=== PATIENT | female | born 1985 | race Caucasian/White ===

== ENCOUNTER 2018-03-03 10:00 | Emergency (ER) | payer MEDICAID ==
[~2018-03-03] VITALS: Ht 170.2 cm; Wt 49.9 kg
[2018-03-03 10:04] VITALS: Ht 170.2 cm; Wt 49.9 kg
[2018-03-03 11:52] LABS: BASOPHIL % 0.3 % (0-2); PLATELET COUNT 201 x10^3mcL (130-400); RED CELL DISTRIBUTION WIDTH 13.1 % (11.5-14.5)
[2018-03-03 12:08] LABS: CALCIUM 8.8 mg/dL (8.5-10.1); CHLORIDE SERUM 109 mmol/L (98-107); CREATININE SERUM 0.9 mg/dL (0.6-1.0); GFR1 > 60 mL/min; GLUCOSE SERUM 85 mg/dL (74-106); SODIUM SERUM 144 mmol/L (136-145)
[2018-03-03 12:13] LABS: ALKALINE PHOSPHATASE 69 U/L (46-116); ALT/SGPT 13 U/L (14-59); AST/SGOT 26 U/L (15-37); BILIRUBIN TOTAL 0.32 mg/dL (0.20-1.00); TOTAL PROTEIN, SERUM 7.6 g/dL (6.4-8.2)
[2018-03-03 12:26] LABS: FREE THYROXINE INDEX 2.8 ug/dL (1.4-4.5); T4(THYROXINE) 8.6 ug/dL (4.7-13.3)
[2018-03-03 12:28] LABS: T3 TOTAL 1.05 ng/mL
[2018-03-03 13:49] LABS: AMPHETAMINE QUAL UR NONE DETECTED (See below)
[2018-03-03 17:58] VITALS: BP 116/71
== END 2018-03-03 18:04 | disposition home or self-care (01) ==
LOC: ED 10:00
PROVIDERS: Emergency Medicine
DX: S50.12XA Contusion of left forearm, initial encounter (principal); F32.9 Major depressive disorder, single episode, unspecified; G89.29 Other chronic pain; M54.9 Dorsalgia, unspecified; N39.0 Urinary tract infection, site not specified; Y93.39 Activity, other involving climbing, rappelling and jumping off; Y92.89 Other specified places as the place of occurrence of the external cause; Y99.8 Other external cause status
CPT/HCPCS: 36415; 84439; G0480

== ENCOUNTER 2018-05-12 21:51 | Emergency (ER) | payer SELFPAY ==
[~2018-05-12] VITALS: Ht 170.2 cm; Wt 49.9 kg
[2018-05-12 22:04] VITALS: Ht 170.2 cm; Wt 49.9 kg
[2018-05-12 22:58] VITALS: BP 106/59
== END 2018-05-12 22:58 | disposition home or self-care (01) ==
LOC: ED 21:51
DX: S69.82XA Other specified injuries of left wrist, hand and finger(s), initial encounter (principal); M79.7 Fibromyalgia; F41.9 Anxiety disorder, unspecified; F17.210 Nicotine dependence, cigarettes, uncomplicated; Z88.1 Allergy status to other antibiotic agents; S69.81XA Other specified injuries of right wrist, hand and finger(s), initial encounter; W86.8XXA Exposure to other electric current, initial encounter; Y93.89 Activity, other specified; Y92.89 Other specified places as the place of occurrence of the external cause; Y99.8 Other external cause status

== ENCOUNTER 2018-06-02 19:30 | Emergency (ER) | payer SELFPAY ==
[~2018-06-02] VITALS: Ht 170.2 cm; Wt 45.4 kg
[2018-06-02 19:55] VITALS: Ht 170.2 cm; Wt 45.4 kg
[2018-06-02 22:46] VITALS: BP 97/64
== END 2018-06-02 22:46 | disposition home or self-care (01) ==
LOC: ED 19:30
DX: J20.9 Acute bronchitis, unspecified (principal); F41.9 Anxiety disorder, unspecified; M79.7 Fibromyalgia; Z88.1 Allergy status to other antibiotic agents
CPT/HCPCS: J1885; J7613

== ENCOUNTER 2018-07-13 21:46 | Emergency (ER) | payer SELFPAY ==
[2018-07-13 21:53] VITALS: Ht 170.2 cm
[2018-07-14 00:10] LABS: BASOPHIL % 0.1 % (0-2); PLATELET COUNT 207 x10^3mcL (130-400); RED CELL DISTRIBUTION WIDTH 13.3 % (11.5-14.5)
[2018-07-14 00:13] LABS: CALCIUM 9.5 mg/dL (8.5-10.1); CARBON DIOXIDE 28.6 mmol/L (21-32); CHLORIDE SERUM 106 mmol/L (98-107); CREATININE SERUM 0.8 mg/dL (0.6-1.0); GFR1 > 60 mL/min; GLUCOSE SERUM 86 mg/dL (74-106); POTASSIUM SERUM 3.6 mmol/L (3.5-5.1); SODIUM SERUM 144 mmol/L (136-145)
[2018-07-14 00:16] LABS: UA SPECIFIC GRAVITY 1.015 (1.005-1.035); microscopic required? YES; urine erythrocyte TRACE (NEGATIVE)
[2018-07-14 00:17] LABS: ALKALINE PHOSPHATASE 80 U/L (46-116); ALT/SGPT 44 U/L (14-59); AMYLASE 58 U/L (25-115); AST/SGOT 53 U/L (15-37); BILIRUBIN TOTAL 0.36 mg/dL (0.20-1.00); CHOLESTEROL 137 mg/dL (<200); LIPASE 106 IU/L (73-393); TOTAL PROTEIN, SERUM 7.5 g/dL (6.4-8.2)
[2018-07-14 00:18] LABS: HDL CHOLESTEROL 63 mg/dL (40-60)
[2018-07-14 01:04] LABS: AMPHETAMINE QUAL UR NONE DETECTED (See below)
[2018-07-14 01:23] VITALS: BP 105/63
== END 2018-07-14 01:23 | disposition home or self-care (01) ==
LOC: ED 21:46
PROVIDERS: Emergency Medicine
DX: R07.89 Other chest pain (principal); M79.7 Fibromyalgia; R64 Cachexia; F12.980 Cannabis use, unspecified with anxiety disorder; F17.210 Nicotine dependence, cigarettes, uncomplicated; Z98.51 Tubal ligation status
CPT/HCPCS: 36415; 83880; 99406; J1100; J1885

== ENCOUNTER 2018-07-23 11:46 | Emergency (ER) | payer SELFPAY ==
[~2018-07-23] VITALS: Ht 200.7 cm; Wt 49.9 kg
[2018-07-23 11:53] VITALS: Ht 200.7 cm; Wt 49.9 kg
[2018-07-23 12:37] LABS: PLATELET COUNT 206 x10^3mcL (130-400); RED CELL DISTRIBUTION WIDTH 13.3 % (11.5-14.5)
[2018-07-23 12:38] LABS: BASOPHIL % 0.1 % (0-2)
[2018-07-23 12:53] LABS: CARBON DIOXIDE 27.7 mmol/L (21-32); CHLORIDE SERUM 106 mmol/L (98-107); CREATININE SERUM 0.9 mg/dL (0.6-1.0); GFR1 > 60 mL/min; GLUCOSE SERUM 224 mg/dL (74-106); POTASSIUM SERUM 3.1 mmol/L (3.5-5.1); SODIUM SERUM 143 mmol/L (136-145)
[2018-07-23 12:58] LABS: ALBUMIN 3.6 g/dL (3.4-5.0); ALKALINE PHOSPHATASE 80 U/L (46-116); ALT/SGPT 14 U/L (14-59); AST/SGOT 23 U/L (15-37); BILIRUBIN TOTAL 0.38 mg/dL (0.20-1.00); TOTAL PROTEIN, SERUM 6.9 g/dL (6.4-8.2)
[2018-07-23 14:51] LABS: AMPHETAMINE QUAL UR NONE DETECTED (See below)
[2018-07-23 19:10] VITALS: BP 118/72
== END 2018-07-23 19:10 | disposition home or self-care (01) ==
LOC: ED 11:46
PROVIDERS: Emergency Medicine
DX: R45.4 Irritability and anger (principal); E87.6 Hypokalemia; M79.7 Fibromyalgia; F41.9 Anxiety disorder, unspecified; Z88.1 Allergy status to other antibiotic agents
CPT/HCPCS: 36415; G0480

== ENCOUNTER 2018-08-03 01:33 | Emergency (ER) | payer SELFPAY ==
[~2018-08-03] VITALS: Ht 170.2 cm; Wt 45.4 kg
[2018-08-03 01:45] VITALS: Ht 170.2 cm; Wt 45.4 kg
[2018-08-03 02:32] LABS: BASOPHIL % 0.5 % (0-2); PLATELET COUNT 221 x10^3mcL (130-400); RED CELL DISTRIBUTION WIDTH 12.5 % (11.5-14.5)
[2018-08-03 02:40] LABS: CALCIUM 9.1 mg/dL (8.5-10.1); CARBON DIOXIDE 30.2 mmol/L (21-32); CHLORIDE SERUM 103 mmol/L (98-107); CREATININE SERUM 1.1 mg/dL (0.6-1.0); GFR1 > 60 mL/min; GLUCOSE SERUM 95 mg/dL (74-106); POTASSIUM SERUM 3.9 mmol/L (3.5-5.1); SODIUM SERUM 143 mmol/L (136-145)
[2018-08-03 02:45] LABS: ALBUMIN 3.7 g/dL (3.4-5.0); ALKALINE PHOSPHATASE 108 U/L (46-116); ALT/SGPT 40 U/L (14-59); AST/SGOT 45 U/L (15-37); BILIRUBIN TOTAL 0.27 mg/dL (0.20-1.00); TOTAL PROTEIN, SERUM 7.2 g/dL (6.4-8.2)
[2018-08-03 02:49] LABS: FREE T4 1.18 ng/dL (0.76-1.46)
[2018-08-03 06:12] VITALS: BP 118/77
[2018-08-03 07:27] LABS: AMPHETAMINE QUAL UR NONE DETECTED (See below)
== END 2018-08-03 06:12 | disposition home or self-care (01) ==
LOC: ED 01:33
PROVIDERS: Emergency Medicine
DX: F41.9 Anxiety disorder, unspecified (principal); F29 Unspecified psychosis not due to a substance or known physiological condition; M79.7 Fibromyalgia; Z98.890 Other specified postprocedural states
CPT/HCPCS: 36415; 84439; G0480

== ENCOUNTER 2018-08-07 15:36 | Emergency (ER) | payer SELFPAY ==
[~2018-08-07] VITALS: Ht 170.2 cm; Wt 45.4 kg
[2018-08-07 15:48] VITALS: Ht 170.2 cm; Wt 45.4 kg
[2018-08-07 16:26] LABS: BASOPHIL % 0.9 % (0-2); PLATELET COUNT 200 x10^3mcL (130-400); RED CELL DISTRIBUTION WIDTH 13.5 % (11.5-14.5)
[2018-08-07 16:39] LABS: CALCIUM 9.7 mg/dL (8.5-10.1); CARBON DIOXIDE 29.1 mmol/L (21-32); CHLORIDE SERUM 106 mmol/L (98-107); CREATININE SERUM 0.8 mg/dL (0.6-1.0); GFR1 > 60 mL/min; GLUCOSE SERUM 83 mg/dL (74-106); POTASSIUM SERUM 4.3 mmol/L (3.5-5.1); SODIUM SERUM 143 mmol/L (136-145)
[2018-08-07 16:51] LABS: ALBUMIN 3.7 g/dL (3.4-5.0); ALKALINE PHOSPHATASE 90 U/L (46-116); ALT/SGPT 36 U/L (14-59); AST/SGOT 42 U/L (15-37); BILIRUBIN TOTAL 0.33 mg/dL (0.20-1.00); TOTAL PROTEIN, SERUM 6.9 g/dL (6.4-8.2)
[2018-08-07 17:12] LABS: AMPHETAMINE QUAL UR NONE DETECTED (See below)
[2018-08-07 21:14] VITALS: BP 113/73
== END 2018-08-07 21:14 | disposition short-term general hospital (02) ==
LOC: ED 15:36
PROVIDERS: Emergency Medicine
DX: R45.851 Suicidal ideations (principal); F41.9 Anxiety disorder, unspecified; F17.210 Nicotine dependence, cigarettes, uncomplicated; M79.7 Fibromyalgia; Z98.51 Tubal ligation status; Z98.890 Other specified postprocedural states
CPT/HCPCS: 36415; G0480